=== PATIENT | female | born 1965 | race American Indian/Alaskan Native ===

== ENCOUNTER 2018-04-28 09:57 | Day surgery (SDC) | payer OTHER ==
[~2018-04-28 09:57] MED LIST: ANCEF/STERILE WATER 2 GM/20 ML IV NR
[2018-04-28] MEDS ORDERED: MARCAINE-EPI/PF 0.25%-1:200,000 INFILTRATI ONE ×2 (11:18→13:33)
[2018-04-28] MEDS ORDERED: ZOFRAN ONE (11:24)
[2018-04-28] MEDS ORDERED: ZEMURON IV ONE (11:24)
[2018-04-28] MEDS ORDERED: BLOXIVERZ ONE (11:24)
[2018-04-28] MEDS ORDERED: DECADRON ONE (11:24)
[2018-04-28] MEDS ORDERED: QUELICIN ONE (11:24)
[2018-04-28] MEDS ORDERED: SUBLIMAZE ONE (11:25)
[2018-04-28] MEDS ORDERED: DIPRIVAN 10 MG/ML IV ONE (11:25)
--- NOTE | 2018-04-28 11:41 | Anesthesia Day of Surgery ---
Anesthesia Day of Surgery - Day of Surgery Patient Examined: Yes Patient H&P Reviewed: Yes Patient is NPO: Yes Beta Blockers: Yes
--- NOTE | 2018-04-28 11:42 | Anesthesia Consultation ---
Anesthesia Consult and Med Hx - Airway Anesthetic Teeth Evaluation: Good ROM Head & Neck: Adequate Mental/Hyoid Distance: Adequate Mallampati Class: Class II Intubation Access Assessment: Probably Good - Pulmonary Exam CTA: Yes - Cardiac Exam Cardiac Exam: No Murmur - Pre-Operative Health Status ASA Pre-Surgery Classification: ASA3 Proposed Anesthetic Plan: General - Pulmonary Hx Asthma: Yes COPD: No Hx Pneumonia: No - Cardiovascular System Hx Hypertension: Yes - Central Nervous System Hx Psychiatric Problems: No - Endocrine Hx End Stage Renal Disease: No - Other Systems Hx Obesity: Yes
[2018-04-28] MEDS ORDERED: VERSED IV NR (12:00)
[2018-04-28] MEDS ORDERED: NACL 0.9% 1000 ML 1,000 ML IV SCH (12:00)
[2018-04-28] MEDS ORDERED: PROAIR IH ONE (13:03)
[2018-04-28] MEDS ORDERED: NACL 0.9% IR ONE (13:34)
[2018-04-28] MEDS ORDERED: ROBINUL ONE (13:39)
--- NOTE | 2018-04-28 13:40 | Operative Report ---
Operative Report Operative Report: Date of procedure: 04/28/2018 Pre-operative diagnosis: Biliary colic Post-operative diagnosis: Same Procedure name(s): Laparoscopic cholecystectomy Surgeon: Tammy Gilmore MD Woodworking Machine Offbearer: None Anesthesia: General EBL: Minimal Complications: None Instrument Count: correct Indications: This is a 53-year-old female with a history of right upper quadrant abdominal pain. Her workup was consistent with a biliary etiology. She was offered the above named procedures of possible treatment modality. The risks and benefits were discussed until all questions were answered. She was subsequently brought to the OR. Findings: Some mild adhesions to the gallbladder Procedure: We reviewed the informed consent. We placed the patient supine upon the table. After adequate anesthesia was reached, the patient was prepped and draped in usual sterile fashion. A 5 mm incision was made the level of umbilicus and a Veress needle was placed at this position. The abdomen was then insufflated to 15 mmHg and a 5 mm trocar was placed through the umbilical incision. We inserted the camera at this time. Under direct vision and after infiltration of local anesthetic an 11 mm port was placed in the epigastric location. This was followed by placement of two five mm ports in the right upper quadrant. We identified the gallbladder and the fundus was grasped. This was retracted superiorly. We then grasped the infundibulum and retracted it laterally. At this time we dissected free the cystic duct infundibular junction until the triangle of Calot was clearly identified. We placed 3 clips proximally on the cystic duct, 2 distally. We placed 2 clips proximally on the cystic artery. We transected the cystic duct sharply. We transected the cystic artery using electrocautery. We then dissected the gallbladder free from its fossa using electrocautery. This was placed in Endo Catch bag and removed the abdomen to be sent to pathology for further evaluation. We assured hemostasis at this time. We then evacuated the insufflation. We removed all ports and closed all port sites using a 4-0 Monocryl in a subcuticular fashion. The wounds were bandaged sterilely. The patient tolerated procedure well. They were taken to PACU in no apparent distress after extubation.
--- NOTE | 2018-04-28 13:43 | Short Stay Summary ---
Short Stay Documentation Date of service: 04/28/18 - History H&P: obtained from office - Allergies and Medications Current Medications: Allergies hydrochlorothiazide Adverse Reaction (Verified 04/15/16 11:39) HEAD PAIN / Home Medications Medication Instructions Recorded Confirmed Last Taken Type ALBUTEROL Inhaler [ProAir HFA 2 puff IH QID PRN 09/16/13 03/02/15 02/08/15 History Inhaler] Metoprolol 50 mg PO BID 03/02/15 03/02/15 03/02/15 History Singulair 10 mg PO DAILY 03/02/15 03/02/15 03/01/15 History Amoxicillin/K Clav Tab [Augmentin 1 each PO Q12HR #20 tablet 03/03/15 Unknown Rx 875MG TAB] Diclofenac EC [Voltaren] 75 mg PO BID PRN #30 tablet 03/03/15 Unknown Rx ALBUTEROL Inhaler [ProAir HFA 2 puff IH QID PRN #1 inhalation 08/27/15 Unknown Rx Inhaler] predniSONE [Deltasone] 40 mg PO QDAY 10 Days tab 08/27/15 Unknown Rx ALBUTEROL NEB's [Proventil 0.083% 2.5 mg IH TID PRN #1 box 02/22/16 03/02/15 Rx NEBS] Budesoni/Formotero 160-4.5(Nf) 2 puff IH BID #1 02/22/16 03/02/15 03/01/15 Rx [Symbicort 160-4.5 (Nf)] Cyclobenzaprine [Flexeril] 10 mg PO TID PRN #20 tablet 04/10/16 Unknown Rx Naproxen [Naprosyn TAB] 375 mg PO BID #30 tablet 04/10/16 Unknown Rx Acetaminophen/Codeine [Tylenol #3] 1 tab PO Q6H PRN #16 tab 04/15/16 Unknown Rx Ibuprofen [Motrin] 800 mg PO Q8HR PRN #30 tablet 07/23/16 Unknown Rx metFORMIN [Glucophage] 500 mg PO BID #30 tablet 07/23/16 Unknown Rx traMADol [Ultram 50 MG tab] 50 mg PO Q6HR PRN #20 tablet 07/23/16 Unknown Rx Active Medications Cefazolin Sodium (Ancef/Sterile Water 2 Gm/20 Ml) 2 gm IV PREOP NR Stop: 04/28/18 23:59 Sodium Chloride (Nacl 0.9% 1000 Ml) 1,000 mls @ 100 mls/hr IV DIRECT CARA Last Admin: 04/28/18 12:05 Dose: 100 mls/hr Midazolam HCl (Versed) 2 mg IV PREOP NR Stop: 04/28/18 23:59 Last Admin: 04/28/18 12:08 Dose: 2 mg - Brief post op/procedure progress note Date of procedure: 04/28/18 Pre-op diagnosis: biliary colic Post-op diagnosis: same Procedure: Laparoscopic cholecystectomy Anesthesia: GETA Findings: As above Surgeon: SOHA ARTHUR Estimated blood loss: minimal Pathology: list (gallbladder) Specimen disposition: to lab Condition: stable - Disposition Condition at discharge: Stable Disposition: DC-01 TO HOME OR SELFCARE Short Stay Discharge Plan Activity: no restrictions Diet: low fat Follow up with: SILVIA TOTH MD [Primary Care Provider] - 7 Days SOHA ARTHUR MD [Staff Physician] - 7 Days Prescriptions: oxyCODONE /ACETAMINOPHEN [Percocet 5/325] 1 tab PO Q6HR PRN #30 tablet PRN Reason: Pain
[2018-04-28] MEDS ORDERED: APRESOLINE ONE (14:04)
[2018-04-28] MEDS ORDERED: APRESOLINE IV PRN (14:13)
[2018-04-28] MEDS ORDERED: XYLOCAINE MPF 2% ONE (14:18)
[2018-04-28] MEDS ORDERED: DILAUDID IV PRN ×2 (14:19)
[2018-04-28] MEDS ORDERED: TORADOL IV PRN (14:19)
[2018-04-28] MEDS ORDERED: NARCAN 0.4 MG/1 ML IV PRN (14:19)
[2018-04-28] MEDS ORDERED: DEMEROL IV PRN (14:19)
[2018-04-28] MEDS ORDERED: ZOFRAN IV PRN (14:19)
[2018-04-28] MEDS ORDERED: PERCOCET 5/325 PO PRN (14:47)
[2018-04-28 15:51] VITALS: BP 121/71
== END 2018-04-28 16:50 | disposition home or self-care (01) ==
LOC: OR 09:57
PROVIDERS: ATTEND Surgery
DX: K80.10 Calculus of gallbladder with chronic cholecystitis without obstruction (principal); M19.90 Unspecified osteoarthritis, unspecified site; J45.909 Unspecified asthma, uncomplicated; E11.42 Type 2 diabetes mellitus with diabetic polyneuropathy; I10 Essential (primary) hypertension; E66.9 Obesity, unspecified; Z68.41 Body mass index [BMI] 40.0-44.9, adult; Z98.890 Other specified postprocedural states; Z88.8 Allergy status to other drugs, medicaments and biological substances; Z88.5 Allergy status to narcotic agent
CPT/HCPCS: 47562; 82962; 88304; J0330; J0360; J0690; J1100; J2250; J2405; J2704; J2710; J3010; J7030